=== PATIENT | male | born 1980 | race Native Hawaiian/Other Pacific Islander ===

== ENCOUNTER 2016-07-24 18:18 | Emergency (ER) | payer OTHER ==
[2016-07-24 18:22] VITALS: BP 151/80; PULSE 115; RESP 20; TEMP 97.7; O2SAT 100
[2016-07-24 18:54] LABS: BASO # 0.2 K/uL (0.0-0.2); BASO % 2.8 % (0.0-2.0); EOS # 0.3 K/uL (0.0-0.7); EOS % 3.5 % (0.0-4.0); HEMATOCRIT 43.8 % (35.0-51.0); LYMPH # 2.5 K/uL (1.0-4.3); MEAN CORPUSCULAR HEMOGLOBIN 31.2 pg (27.0-31.0); MEAN CORPUSCULAR HGB CONC 33.6 g/dL (33.0-37.0); MONO # 0.5 K/uL (0.0-0.8); MONO % 5.7 % (0.0-10.0); NEUT # 4.5 K/uL (1.8-7.0); NRBC % 0.1 % (0.0-0.0); RED CELL DISTRIBUTION WIDTH 13.5 % (11.5-14.5); WHITE BLOOD COUNT 7.9 K/uL (4.8-10.8)
[2016-07-24] MEDS ORDERED: Sodium Chloride 0.9% 1,000 ML IV STA (18:57)
--- NOTE | 2016-07-24 19:00 | ED PDOC ---
HPI: Seizure Time Seen by Provider: 07/24/16 18:26 Chief Complaint (Nursing): Seizure Chief Complaint (Provider): Seizure History Per: Patient, Other (girlfriend) History/Exam Limitations: no limitations Recent Seizure Activity Began: Just Before Arrival Number Of Seizures: One Length Of Seizures (Duration): Minutes (lasted about 1 minute) Quality Of Seizure: Generalized Precipitating Factor(s): Recent Alcohol Ingestion (admits to having a glass of wine yesterday which he usually does not drink during the week), Other (patient believes seizure is in relation with stress due to work). denies: Decreased Sleep, Recent Head Trauma Associated Symptoms: denies: Incontinence Of Urine, Injury As A Result Of Seizure Activity, Other (focal weakness, blurry vision, or any generalized pain) Post-ictal Period: Duration In Mins: (approximately 5-10 minutes) Severity: Moderate Additional Complaint(s): Desmond Duvall is a 35 year old male, accompanied with his girlfriend, with a past medical history of previous seizures, who presents to the emergency department via EMS for the evaluation of a generalized tonic-clonic seizure, that the patient experienced just prior to arrival. Patient's girlfriend states that his seizure lasted 1 minute with a postictal state lasting approximately 5-10 minutes. The last thing the patient [place] [employer] [place], the next thing he knew, the EMS team was putting him on a stretcher. Patient believes that his seizures are usually triggered by stress which he has recently had a lot of due to work. He admits to having a glass of wine yesterday , which he states that he usually does not drink during the week and last ate lunch at 14:00 today. Denies a head injury, mouth abrasions or bleeding, urinary incontinence, generalized pain anywhere to his body, a loss of sleep, focal weakness, or blurry vision. Of note, symptoms are consistent with patient' s similar episodes of seizures in the past. PMD: Dr. Farmer Past Medical History Reviewed: Historical Data, Nursing Documentation, Vital Signs Vital Signs: Last Vital Signs Temp 97.7 F 07/24/16 18:20 Pulse 115 H 07/24/16 18:20 Resp 20 07/24/16 18:20 BP 151/80 H 07/24/16 18:20 Pulse Ox 100 07/24/16 20:18 - Medical History PMH: Seizures - Surgical History Surgical History: No Surg Hx - Family History Family History: States: Other Other Family History: Seizures - Social History Current smoker - smoking cessation education provided: No Ex-Smoker (has not smoked in the last 12 months): No Alcohol: Social - Home Medications Home Medications: Ambulatory Orders Medication Instructions Recorded Phenytoin, Extended [Dilantin] 400 mg PO BID 07/24/16 levETIRAcetam [Keppra] 1,000 mg PO BID 07/24/16 - Allergies Allergies/Adverse Reactions: Allergies Allergy/AdvReac Type Severity Reaction Status Date / Time Penicillins Allergy RASH Verified 07/24/16 18:22 Review of Systems ROS Statement: Except As Marked, All Systems Reviewed And Found Negative Eyes: Negative for: Vision Change Genitourinary Male: Negative for: Incontinence Musculoskeletal: Negative for: Other (head injury/pain, generalized pain elsewhere to his body) Skin: Negative for: Other (abrasions or bleeding to the mouth) Neurological: Positive for: Seizures (tonic-clonic), Other (memory impairment; denies a loss of sleep, focal weakness) Psych: Positive for: Other (stressed) Physical Exam - Reviewed Nursing Documentation Reviewed: Yes Vital Signs Reviewed: Yes - Physical Exam Appears: Positive for: Well, Non-toxic, No Acute Distress Head Exam: Positive for: ATRAUMATIC, NORMAL INSPECTION, NORMOCEPHALIC Skin: Positive for: Normal Color, Warm, Dry Eye Exam: Positive for: Normal appearance, EOMI, PERRL ENT: Positive for: Normal ENT Inspection, Other (tacky mucous membranes). Negative for: Pharyngeal Erythema, Tonsillar Exudate Neck: Positive for: Normal, Painless ROM, Supple Cardiovascular/Chest: Positive for: Regular Rate, Rhythm. Negative for: Murmur Respiratory: Positive for: Normal Breath Sounds. Negative for: Wheezing, Respiratory Distress Gastrointestinal/Abdominal: Positive for: Normal Exam, Soft. Negative for: Tenderness Back: Positive for: Normal Inspection. Negative for: Decreased ROM Extremity: Positive for: Normal ROM. Negative for: Tenderness, Deformity Lymphatic: Negative for: Adenopathy Neurologic/Psych: Positive for: Alert, Oriented, Mood/Affect (normal), Cerebellar Tests (normal). Negative for: Motor/Sensory Deficits, Aphasia, Facial Droop - Laboratory Results Result Diagrams: 07/24/16 18:40 07/24/16 18:40 - ECG O2 Sat by Pulse Oximetry: 100 (RA) Pulse Ox Interpretation: Normal Medical Decision Making Medical Decision Makin:26 Initial Impression: Breakthrough seizure Differential Diagnoses include, but are not limited to, electrolyte abnormality , stress, dehydration, and subtherapeutic medication. Initial Plan: * EKG * Alcohol Serum * CBC * CMP * Lact Acid, Plasma * Creatine Phosphokinase * Magnesium * Phosphorous * Dilantin * Levetiracetam * Urine Drug Screen * Urinalysis * Sodium Chloride 0.9% 1,000 ml IV at 1,000 mls/hr * Glucose, Blood, POC * Reevaluation Labs demonstrate elevated lactic acid c/w recent seizure. Otherwise now clinically significan lab abnormalities Pt remains stable. Scribe Attestation: Documented by Krish Khan, acting as a scribe for Zainab Lyles MD. Provider Scribe Attestation: All medical record entries made by the Scribe were at my direction and personally dictated by me. I have reviewed the chart and agree that the record accurately reflects my personal performance of the history, physical exam, medical decision making, and the department course for this patient. I have also personally directed, reviewed, and agree with the discharge instructions and disposition. Disposition - Clinical Impression Clinical Impression: Simple seizure Counseled Patient/Family Regarding: Studies Performed, Diagnosis, Need For Followup - Disposition Referrals: Kelton Ramsey MD [Staff Provider] - (PLEASE FOLLOW UP WITH A NEUROLOGIST WITHIN A WEEK) [facility] [Outside] Disposition: Routine/Home Disposition Time: 20:15 Condition: IMPROVED Additional Instructions: DRINK PLENTY OF HYDRATING FLUIDS AND REST. CONTINUE ALL MEDICATIONS PRESCRIBED (YOUR BLOODWORK TODAY DEMONSTRATED SUBTHERAPEUTIC DILANTIN.) Instructions: Recurrent Seizures in Adults (ED)
[2016-07-24 19:20] LABS: ALB/GLOB RATIO 1.5 (1.0-2.1); ALCOHOL SERUM < 10 mg/dl (0-10); ALKALINE PHOSPHATASE 85 U/L (38-126); ALT/SGPT 37 U/L (21-72); AST/SGOT 33 U/L (17-59); BILIRUBIN,TOTAL 0.2 mg/dl (0.2-1.3); BLOOD UREA NITROGEN 13 mg/dl (9-20); CALCIUM 9.3 mg/dL (8.4-10.2); CARBON DIOXIDE 19 mmol/L (22-30); CHLORIDE 102 mmol/L (98-107); GFR AFRICAN-AMERICAN > 60; GLUCOSE,RANDOM 88 mg/dL (75-110); MAGNESIUM 2.2 MG/DL (1.6-2.3); PHOSPHOROUS 3.7 mg/dl (2.5-4.5); SODIUM 140 mmol/l (132-148); TOTAL PROTEIN 7.9 G/DL (6.3-8.2)
[2016-07-24 20:44] LABS: RBC URINE 4 /hpf (0-3); URINE BACTERIA MOD (<OCC); URINE BILIRUBIN NEGATIVE (NEGATIVE); URINE BLOOD SMALL (NEGATIVE); URINE COLOR YELLOW (YELLOW); URINE GLUCOSE (UA) NEG (Normal); URINE KETONE NEGATIVE (NEGATIVE); URINE LEUKOCYTE ESTERASE NEG Leu/uL (Negative); URINE PROTEIN 30 mg/dL (NEGATIVE); URINE UROBILINOGEN 0.2-1.0 mg/dL (0.2-1.0); WBC URINE 2 /hpf (0-5)
--- NOTE | 2016-07-25 11:34 | CARD ---
APPROVED REPORT EKG Measurement Heart [id number] <Conclusion> Normal sinus rhythm Normal ECG
== END 2016-07-24 21:46 | disposition home or self-care (01) ==
LOC: H.ER 18:18
DX: G40.909 Epilepsy, unspecified, not intractable, without status epilepticus (principal); Z88.0 Allergy status to penicillin